=== PATIENT | female | born 1985 | race Caucasian/White ===

== ENCOUNTER → 2016-09-18 | Outpatient (CLI) | payer OTHER ==
[~2016-09-18] VITALS: Ht 165.1 cm; Wt 79.0 kg
[~2016-09-18] MED LIST: ASPIRIN81 M2 PO; ENDOCET 5-3251 EACH PO; FOLIC ACID0.8 MG PO; IBUPROFEN800 MG PO; PRENATAL VITAM1 EAC1 PO; ZYRTEC10 M3 PO
[2016-09-18 09:03] VITALS: BP 109/59
== END | disposition home or self-care (01) ==
LOC: IVINF 08:56
DX: Z31.82 Encounter for Rh incompatibility status (principal); Z3A.24 24 weeks gestation of pregnancy; Z67.21 Type B blood, Rh negative
CPT/HCPCS: 96372; J2790

== ENCOUNTER 2016-10-04 16:28 | Outpatient (CLI) | payer OTHER ==
[2016-10-04 16:52] VITALS: BP 125/73
== END 2016-10-04 19:05 | disposition home or self-care (01) ==
LOC: LDRP-OP 16:28 → 2WEST 16:29 → LDRP-OP 12-24 12:37
DX: O26.899 Other specified pregnancy related conditions, unspecified trimester (principal); R10.9 Unspecified abdominal pain; W19.XXXA Unspecified fall, initial encounter; Z3A.00 Weeks of gestation of pregnancy not specified
CPT/HCPCS: 59025; G0378

== ENCOUNTER 2016-10-08 16:44 | Outpatient (CLI) | payer OTHER ==
[~2016-10-08] VITALS: Ht 165.1 cm; Wt 84.0 kg
[2016-10-08 17:05] VITALS: BP 118/64
[2016-10-08 18:17] VITALS: BP 115/62
[2016-10-08 18:48] VITALS: BP 108/64
== END 2016-10-08 20:12 | disposition home or self-care (01) ==
LOC: LDRP-OP 16:44 → 2WEST 16:46 → LDRP-OP 01-03 19:37
DX: O35.8XX0 Maternal care for other (suspected) fetal abnormality and damage, not applicable or unspecified (principal); Z3A.31 31 weeks gestation of pregnancy; O99.283 Endocrine, nutritional and metabolic diseases complicating pregnancy, third trimester; E72.12 Methylenetetrahydrofolate reductase deficiency; O34.219 Maternal care for unspecified type scar from previous cesarean delivery
CPT/HCPCS: 59025; G0378

== ENCOUNTER 2016-11-19 18:19 | Inpatient (IN) | payer OTHER ==
[~2016-11-19] VITALS: Ht 165.1 cm; Wt 86.4 kg
[2016-11-19 18:49] VITALS: BP 120/79
[2016-11-19 19:11] LABS: EOSINOPHIL COUNT 0.4 K/uL (0-0.3); HEMATOCRIT 37.4 % (36.0-46.0); IMMATURE GRANULOCYTE (%) 0.6 % (0.0-0.7); IMMATURE GRANULOCYTE COUNT 0.1 K/uL; INSTRUMENT ABS NEUTROPHIL CT 8.2 K/uL; LYMPHOCYTE COUNT 2.8 K/uL (1.0-2.8); MCHC 32.4 G/DL (30.0-36.0); MCV 92.8 FL (83-99); MONOCYTE (%) 8.2 % (3-12); NEUTROPHIL (%) 65.5 % (45-76); NEUTROPHIL COUNT 8.2 K/uL (1.8-6.4); PLATELET COUNT 128 K/uL (156-360); RBC DIS.WIDTH-SD 44.3 % (39-53); RED BLOOD COUNT 4.03 M/uL (3.80-5.20); WHITE BLOOD COUNT 12.5 K/uL (4.1-10.2)
[2016-11-19] MEDS ORDERED: MOTRIN800 MG PO (21:35)
[2016-11-19] MEDS ORDERED: PERCOCET 5/31 TABLET PO (21:35)
[2016-11-19 22:19] VITALS: BP 136/72
[2016-11-19 23:11] VITALS: BP 125/80
[2016-11-20] VITALS (9 sets, daily range): BP systolic 106–126; BP diastolic 55–71
[2016-11-20 06:36] LABS: EOSINOPHIL (%) 0.1 % (0-5); HEMATOCRIT 32.8 % (36.0-46.0); IMMATURE GRANULOCYTE (%) 0.6 % (0.0-0.7); IMMATURE GRANULOCYTE COUNT 0.1 K/uL; INSTRUMENT ABS NEUTROPHIL CT 12.2 K/uL; LYMPHOCYTE COUNT 2.4 K/uL (1.0-2.8); MCH 30.4 PG (29.0-34.0); MCHC 32.6 G/DL (30.0-36.0); MCV 93.2 FL (83-99); MEAN PLAT.VOLUME 13.8 uM^3 (9.5-12.4); MONOCYTE (%) 6.9 % (3-12); MONOCYTE COUNT 1.1 K/uL (0-0.8); NEUTROPHIL COUNT 12.2 K/uL (1.8-6.4); PLATELET COUNT 113 K/uL (156-360); RBC DIS.WIDTH-SD 43.9 % (39-53); RED BLOOD COUNT 3.52 M/uL (3.80-5.20); WHITE BLOOD COUNT 15.8 K/uL (4.1-10.2)
[2016-11-21 03:14] VITALS: BP 102/64
[2016-11-21 07:17] VITALS: BP 110/69
[2016-11-21 11:10] VITALS: BP 111/69
[2016-11-21 15:17] VITALS: BP 112/72
[2016-11-21 19:38] VITALS: BP 108/67
[2016-11-21 23:41] VITALS: BP 108/59
[2016-11-22 08:04] VITALS: BP 120/65
== END 2016-11-22 14:30 | disposition home or self-care (01) | DRG 765 ==
LOC: LDRP-OP 18:19 → 2WEST 18:21 → LDRP-OP 01-03 21:14
PROVIDERS: Obstetrics & Gynecology
PROC: 10D00Z1 Extraction of Products of Conception, Low, Open Approach (ICD-10-PCS; principal; 2016-11-19)
DX: O64.1XX1 Obstructed labor due to breech presentation, fetus 1 (principal); O41.03X1 Oligohydramnios, third trimester, fetus 1; O36.0931 Maternal care for other rhesus isoimmunization, third trimester, fetus 1; O34.211 Maternal care for low transverse scar from previous cesarean delivery; O76 Abnormality in fetal heart rate and rhythm complicating labor and delivery; Z37.0 Single live birth; Z3A.37 37 weeks gestation of pregnancy; Z79.82 Long term (current) use of aspirin
CPT/HCPCS: 85025; 86850; 86870; 86900; 86901; 86905; 86920; J0690; J1100; J1200; J2175; J2274; J2405; J2590; J7120